=== PATIENT | female | born 1970 | race Caucasian/White ===

== ENCOUNTER 2022-02-20 06:42 | Day surgery (SDC) | payer MEDICAID ==
[2022-02-19 12:24] LABS: HCG,QUAL RESULT NEGATIVE (NEGATIVE)
[~2022-02-20] VITALS: Ht 157.5 cm; Wt 156.5 kg
[2022-02-20] MEDS ORDERED: MIDAZOLAM HCL 5 MG/5 ML VIAL ONE (07:16)
[2022-02-20] MEDS ORDERED: fentaNYL CITRATE/PF 100 MCG/2 ML AMP ONE (07:16)
[2022-02-20 14:06] VITALS: BP_SYST 144
== END 2022-02-20 10:30 | disposition home or self-care (01) ==
LOC: SDS 06:42 → SMU 06:43 → SDS 10:30
PROVIDERS: ATTEND Internal Medicine
DX: R19.5 Other fecal abnormalities (principal); K63.5 Polyp of colon; K21.9 Gastro-esophageal reflux disease without esophagitis; K57.30 Diverticulosis of large intestine without perforation or abscess without bleeding; K64.8 Other hemorrhoids; I10 Essential (primary) hypertension; E11.9 Type 2 diabetes mellitus without complications; E78.5 Hyperlipidemia, unspecified; Z20.822 Contact with and (suspected) exposure to COVID-19; Z79.899 Other long term (current) drug therapy
CPT/HCPCS: 84703; 36415; 45380; 45385; 82962; 88305; 99152; 99153; U0003; G0378; J2250; J3010; 45384